=== PATIENT | male | born 1965 | race Caucasian/White ===

== ENCOUNTER 2021-04-15 14:37 | Inpatient (IN) ==
[2021-04-15] MEDS ORDERED: ACETAMINOPHEN 325 MG TABLET PO PRN (18:24)
[2021-04-15] MEDS ORDERED: MAGNESIUM HYDROXIDE SUSP 30 ML UDCUP PO PRN (18:24)
[2021-04-15] MEDS ORDERED: SODIUM CHLORIDE 0.9% 1,000 ML IV PRN (18:24)
[2021-04-15] MEDS ORDERED: ZALEPLON 5 MG CAPSULE PO PRN (18:37)
[2021-04-15 18:57] LABS: Basophils % 0.7 % (0.0-0.8); Eosinophils # 0.2 10*3/uL (0.0-0.87); Eosinophils % 3.9 % (0.00-10.9); Hematocrit 19.7 VOL% (42.0-52.0); Immature Granulocytes % 4.1 %; Immature Granulocytes Absolute 0.17 #; Lymphocytes # 0.3 10*3/uL (1.4-4.0); Lymphocytes % 7.3 % (21.2-54.2); Mean Corpuscular Volume 115.9 FL (87-102); Mean Platelet Volume 9.4 FL (9.6-12.0); Monocytes % 6.3 % (1.7-12.7); Neutrophils % 77.7 % (38.7-73.9); Platelet Count 152 T/CUMM (130-400); Red Cell Distribution Width 15.9 % (9.3-17.3); White Blood Count 4.1 T/CUMM (4-12)
[2021-04-15 19:00] LABS: Hemoglobin 6.1 GM/DL (14.0-18.0)
[2021-04-15 19:21] LABS: Band Neutrophils 3 % (0-10); Lymphocytes 7 % (20-55); Metamyelocytes 4 %; Myelocytes 1 %; Nucleated Red Blood Cells 1 (0-5); Segmented Neutrophils 83 % (50-85); Total Cells Counted 100
[2021-04-15 19:22] LABS: Anisocytosis 2+; Macrocytosis 2+; Microcytosis Slight; Polychromasia 2+
[2021-04-15 19:22] LABS: Albumin 4.1 G/DL (3.4-5.0); Calcium 8.4 MG/DL (8.5-10.1); Osmolality,Calculated 286.1 MOS/KG (273-304); Total Protein 7.2 G/DL (6.4-8.2)
[2021-04-15 19:24] LABS: Albumin 4.1 G/DL (3.4-5.0); Bilirubin,Direct 0.48 MG/DL (0.0-0.20); Bilirubin,Indirect 3.2 MG/DL (0.0-1.0); Bilirubin,Total 3.7 MG/DL (0.2-1.0); Ferritin 697.3 ng/ml (26-388); Platelet Estimate Adequate; Total Protein 6.7 G/DL (6.4-8.2)
[2021-04-15 19:25] LABS: Hypochromasia Slight
[2021-04-15 20:03] LABS: Sedimentation Rate-Westergren 27 MM/HR (0-20)
[2021-04-15 20:15] LABS: Folate 8.34 NG/ML (5.38-24.0); Hepatitis B Core IgM Quant 0.06 Index; Hepatitis B Surface Ag Quant < 0.10 Index; Hepatitis B Surface Ag Result Non-Reactive (NonReactive); Hepatitis C Virus Ab Quant 0.02 Index; Hepatitis C Virus Ab Result Non-Reactive (NonReactive); Vitamin B12 519 PG/ML (211-911)
[2021-04-15] MEDS: DOCUSATE SODIUM 100 MG CAPSULE PO SCH (20:45)
[2021-04-15] MEDS: AMITRIPTYLINE 50 MG TABLET PO SCH (20:45)
[2021-04-15] MEDS: cloNIDine 0.1 MG TABLET PO SCH (20:45)
[2021-04-15] MEDS: BACLOFEN 10 MG TABLET PO SCH (20:50)
[2021-04-15] MEDS: SODIUM CHLORIDE 0.45% 1,000 ML IV SCH (22:06)
[2021-04-16 01:58] LABS: Bilirubin,Urine Negative (Negative); Blood, Urine Small mg/dL (Negative); Glucose,Urine (UA) Negative (Negative); Ketones,Urine Negative (Negative); Mucus,Urine Few /LPF (Occasional); Nitrite,Urine Negative (Negative); Protein,Urine Negative; RBC,Urine 2 /HPF (0-4); Urine Appearance CLEAR (Clear); Urine Color Yellow (Yellow); Urine Specific Gravity 1.018 (1.001-1.035)
[2021-04-16 05:50] LABS: Albumin 3.5 G/DL (3.4-5.0); Bilirubin,Total 3.3 MG/DL (0.2-1.0); Calcium 8.1 MG/DL (8.5-10.1); Osmolality,Calculated 280.5 MOS/KG (273-304); Potassium 3.9 MMOL/L (3.5-5.1); Total Protein 5.8 G/DL (6.4-8.2)
[2021-04-16] MEDS: SODIUM CHLORIDE 0.45% 1,000 ML IV SCH ×3 (06:03→23:54)
[2021-04-16 08:38] LABS: Risk Ratio 5.62
[2021-04-16] MEDS: cloNIDine 0.1 MG TABLET PO SCH ×2 (08:46→21:40)
[2021-04-16] MEDS: PANTOPRAZOLE 40 MG TABLET PO SCH (08:46)
[2021-04-16] MEDS: DOCUSATE SODIUM 100 MG CAPSULE PO SCH ×2 (08:46→21:41)
[2021-04-16 08:51] LABS: Hemoglobin A1 (Alkaline) 97.4 % (96.5-98.5); Hemoglobin A2 (Alkaline) 2.6 % (1.5-3.5)
[2021-04-16] MEDS: predniSONE 20 MG TABLET PO SCH (09:30)
[2021-04-16] MEDS: FOLIC ACID 1 MG TABLET PO SCH (09:30)
[2021-04-16 19:13] LABS: Haptoglobin < 8.0 MG/DL (30-200)
[2021-04-16] MEDS: AMITRIPTYLINE 50 MG TABLET PO SCH (21:40)
[2021-04-16] MEDS: BACLOFEN 10 MG TABLET PO SCH (21:41)
[2021-04-17] MEDS: SODIUM CHLORIDE 0.45% 1,000 ML IV SCH ×3 (04:56→21:27)
[2021-04-17 05:38] LABS: Basophils % 0.2 % (0.0-0.8); Eosinophils % 0.3 % (0.00-10.9); Immature Granulocytes % 4.6 %; Lymphocytes # 0.4 10*3/uL (1.4-4.0); Mean Corpuscular HGB Conc 31.2 GM/DL (32-36); Mean Corpuscular Volume 118.5 FL (87-102); Mean Platelet Volume 10.2 FL (9.6-12.0); Monocytes % 5.1 % (1.7-12.7); NRBC # 0.03 10*3/uL; Neutrophils % 84.8 % (38.7-73.9); Platelet Count 179 T/CUMM (130-400); Red Blood Count 1.46 MC/CUMM (3.8-5.5); Red Cell Distribution Width 15.8 % (9.3-17.3); White Blood Count 8.7 T/CUMM (4-12)
[2021-04-17 05:43] LABS: Hematocrit 17.3 VOL% (42.0-52.0); Hemoglobin 5.4 GM/DL (14.0-18.0)
[2021-04-17 05:50] LABS: Albumin 3.5 G/DL (3.4-5.0); Bilirubin,Total 2.7 MG/DL (0.2-1.0); Calcium 8.2 MG/DL (8.5-10.1); Osmolality,Calculated 283.3 MOS/KG (273-304); Potassium 3.8 MMOL/L (3.5-5.1)
[2021-04-17 05:57] LABS: Hypochromasia 1+; Platelet Estimate Adequate
[2021-04-17 05:58] LABS: Macrocytosis Slight; Polychromasia Slight
[2021-04-17] MEDS: DOCUSATE SODIUM 100 MG CAPSULE PO SCH ×2 (09:30→20:49)
[2021-04-17] MEDS: FOLIC ACID 1 MG TABLET PO SCH (09:30)
[2021-04-17] MEDS: PANTOPRAZOLE 40 MG TABLET PO SCH (09:30)
[2021-04-17] MEDS: predniSONE 20 MG TABLET PO SCH (09:30)
[2021-04-17] MEDS: cloNIDine 0.1 MG TABLET PO SCH ×2 (09:30→20:49)
[2021-04-17] MEDS ORDERED: methylPREDNISolone SOD SUC 40 MG/1 ML VIAL IV ONE (10:00)
[2021-04-17] MEDS ORDERED: FAMOTIDINE 20 MG TABLET PO ONE (10:00)
[2021-04-17] MEDS ORDERED: RITUXIMAB-ABBS 500 MG, RITUXIMAB-ABBS 250 MG in SODIUM CHLORIDE 0.9% 675 ML IV ONE (10:30)
[2021-04-17] MEDS: diphenhydrAMINE 50 MG/1 ML VIAL IV PRN ×2 (10:43→20:49)
[2021-04-17] MEDS: ONDANSETRON 4 MG/2 ML VIAL IV PRN (11:07)
[2021-04-17] MEDS: BACLOFEN 10 MG TABLET PO SCH (20:49)
[2021-04-17] MEDS: AMITRIPTYLINE 50 MG TABLET PO SCH (20:49)
[2021-04-18 04:54] LABS: Basophils % 0.3 % (0.0-0.8); Eosinophils % 0.4 % (0.00-10.9); Hematocrit 25.8 VOL% (42.0-52.0); Immature Granulocytes % 2.2 %; Immature Granulocytes Absolute 0.23 #; Lymphocytes # 0.3 10*3/uL (1.4-4.0); Lymphocytes % 2.8 % (21.2-54.2); Mean Corpuscular Volume 112.2 FL (87-102); Mean Platelet Volume 9.7 FL (9.6-12.0); Monocytes % 1.6 % (1.7-12.7); NRBC # 0.25 10*3/uL; Neutrophils % 92.7 % (38.7-73.9); Platelet Count 141 T/CUMM (130-400); Red Cell Distribution Width 20.1 % (9.3-17.3); White Blood Count 10.3 T/CUMM (4-12)
[2021-04-18 05:07] LABS: Albumin 3.6 G/DL (3.4-5.0); Bilirubin,Total 8.3 MG/DL (0.2-1.0); Calcium 8.3 MG/DL (8.5-10.1); Osmolality,Calculated 283.4 MOS/KG (273-304); Potassium 3.7 MMOL/L (3.5-5.1)
[2021-04-18 07:17] LABS: Band Neutrophils 6 % (0-10); Lymphocytes 5 % (20-55); Metamyelocytes 1 %; Nucleated Red Blood Cells 3 (0-5); Segmented Neutrophils 86 % (50-85); Total Cells Counted 100
[2021-04-18 07:18] LABS: Platelet Estimate Adequate; Polychromasia 1+; Target Cells Few
[2021-04-18] MEDS: ONDANSETRON 4 MG/2 ML VIAL IV PRN (09:39)
[2021-04-18] MEDS: PANTOPRAZOLE 40 MG TABLET PO SCH (09:39)
[2021-04-18] MEDS: DOCUSATE SODIUM 100 MG CAPSULE PO SCH ×2 (09:40→21:00)
[2021-04-18] MEDS: predniSONE 20 MG TABLET PO SCH (09:40)
[2021-04-18] MEDS: cloNIDine 0.1 MG TABLET PO SCH ×2 (09:40→20:59)
[2021-04-18] MEDS: FOLIC ACID 1 MG TABLET PO SCH (09:40)
[2021-04-18] MEDS: SODIUM CHLORIDE 0.45% 1,000 ML IV SCH ×2 (11:30→21:01)
[2021-04-18] MEDS: BACLOFEN 10 MG TABLET PO SCH (21:00)
[2021-04-18] MEDS: AMITRIPTYLINE 50 MG TABLET PO SCH (21:00)
[2021-04-19 05:03] LABS: Basophils % 0.1 % (0.0-0.8); Eosinophils % 0.1 % (0.00-10.9); Hematocrit 22.6 VOL% (42.0-52.0); Immature Granulocytes % 2.3 %; Immature Granulocytes Absolute 0.37 #; Lymphocytes # 0.3 10*3/uL (1.4-4.0); Mean Corpuscular Volume 116.5 FL (87-102); Mean Platelet Volume 10.5 FL (9.6-12.0); Monocytes % 3.6 % (1.7-12.7); NRBC # 0.05 10*3/uL; Neutrophils % 91.9 % (38.7-73.9); Platelet Count 108 T/CUMM (130-400); Red Blood Count 1.94 MC/CUMM (3.8-5.5); Red Cell Distribution Width 16.1 % (9.3-17.3); White Blood Count 16.3 T/CUMM (4-12)
[2021-04-19] MEDS: SODIUM CHLORIDE 0.45% 1,000 ML IV SCH ×3 (05:10→11:56)
[2021-04-19 05:24] LABS: Albumin 3.3 G/DL (3.4-5.0); Bilirubin,Total 3.6 MG/DL (0.2-1.0); Calcium 8.1 MG/DL (8.5-10.1); Osmolality,Calculated 282.4 MOS/KG (273-304); Total Protein 6.1 G/DL (6.4-8.2)
[2021-04-19 06:26] LABS: Calcium 8.3 MG/DL (8.5-10.1); Osmolality,Calculated 278.7 MOS/KG (273-304); Potassium 3.9 MMOL/L (3.5-5.1)
[2021-04-19 06:46] LABS: Lymphocytes 1 % (20-55); Macrocytosis 1+; Platelet Estimate Normal; Polychromasia 1+; Segmented Neutrophils 97 % (50-85); Total Cells Counted 100
[2021-04-19 06:49] LABS: Tear Drop Cells Few
[2021-04-19] MEDS: FOLIC ACID 1 MG TABLET PO SCH (09:40)
[2021-04-19] MEDS: PANTOPRAZOLE 40 MG TABLET PO SCH (09:40)
[2021-04-19] MEDS: predniSONE 20 MG TABLET PO SCH (09:41)
[2021-04-19] MEDS: DOCUSATE SODIUM 100 MG CAPSULE PO SCH (09:41)
[2021-04-19] MEDS: cloNIDine 0.1 MG TABLET PO SCH (09:41)
[2021-04-19 13:46] VITALS: BP 127/80
== END 2021-04-19 14:53 | disposition home or self-care (01) | DRG 812 ==
LOC: N.5E 16:57 → N.4E 04-16 09:46
PROVIDERS: ADMIT Family Medicine; ATTEND Family Medicine